=== PATIENT | female | born 1940 | race Caucasian/White ===

== ENCOUNTER → 2021-01-19 | Day surgery (SDC) | payer MEDICARE, OTHER ==
[~2021-01-19] MED LIST: ALDACTONE25 MG PO; ARICEPT10 MG PO; ATORVASTATIN CA20 MG PO; CARAFATE1 GM PO; CARDIZEM CD120 MG PO; CYANOCOBAL1000 MCG/1 IM; DEXILANT30 MG PO; DITROPAN 5 MG TA5 MG PO; ECOTRIN81 MG PO; ELIQUIS2.5 MG PO; FERROUS SULFAT325 M2 PO; FLONASE 0.05% N16 GM; FLUZONE QU60 MCG/013 IM; IMDUR ER TAB 3030 MG PO; KENALOG OINT 0.15 GM TD; KLOR-CON M2020 MEQ PO; LASIX20 MG PO; LASIX40 MG PO; LIPITOR40 MG PO; LOPRESSOR50 MG PO; MOBIC7.5 MG PO; MULTI-VITAMIN1 EACH PO; PERIDEX15 ML PO; PRILOSEC OTC20 MG PO; PRINIVIL5 MG PO; RISPERDAL0.5 MG PO; RISPERDAL1 MG PO; SENOKOT8.6 MG PO; SINGULAIR10 MG PO; TRICOR145 MG PO; TRICOR48 MG PO; ULTRAM50 MG PO; VENOFER 20020 MG/ML INJ; VENTOLIN HFA 66.7 GM INH; VITAMIN C 500500 MG PO; ZANTAC150 MG PO; ZOLOFT100 MG PO
== END | disposition home or self-care (01) ==
LOC: OR 07:12
DX: K29.70 Gastritis, unspecified, without bleeding (principal); D50.9 Iron deficiency anemia, unspecified; I11.0 Hypertensive heart disease with heart failure; I50.9 Heart failure, unspecified; E11.9 Type 2 diabetes mellitus without complications; J45.909 Unspecified asthma, uncomplicated; I48.91 Unspecified atrial fibrillation; Z20.822 Contact with and (suspected) exposure to COVID-19
CPT/HCPCS: J2704; J7040